=== PATIENT | female | born 1990 | race Caucasian/White ===

== ENCOUNTER 2017-06-23 16:22 | Inpatient (IN) | payer OTHER ==
[2017-06-23] VITALS (19 sets, daily range): BP systolic 109–151; BP diastolic 59–87
[~2017-06-23] VITALS: Ht 170.2 cm; Wt 69.4 kg
[~2017-06-23 16:22] MED LIST: B-COMPLEX-VITA1 EACH PO; CLARAVIS40 MG PO; IBUPROFEN800 MG PO; KEFLEX500 MG PO; LEVOTHYROXINE50 MCG PO; MICRONOR0.35 MG PO; Motrin PO; PRENATAL1 EACH PO; VITAMIN D-32000 UNI2 PO
[2017-06-23] MEDS ORDERED: VALTREX50 MG/ML PO (17:03)
[2017-06-23] MEDS ORDERED: WOMEN'S DAILY1 EAC4 PO (17:03)
[2017-06-23 17:40] LABS: BASOPHIL (%) 0.2 % (0-1); EOSINOPHIL (%) 0.1 % (0-5); HEMATOCRIT 36.8 % (36.0-46.0); HEMOGLOBIN 12.3 G/DL (11.9-15.5); IMMATURE GRANULOCYTE (%) 0.5 % (0.0-0.7); LYMPHOCYTE (%) 11.9 % (15-42); LYMPHOCYTE COUNT 1.8 K/uL (1.0-2.8); MCH 29.9 PG (29.0-34.0); MCHC 33.4 G/DL (30.0-36.0); MCV 89.3 FL (83-99); MONOCYTE (%) 4.2 % (3-12); MONOCYTE COUNT 0.6 K/uL (0-0.8); NEUTROPHIL (%) 83.1 % (45-76); NEUTROPHIL COUNT 12.4 K/uL (1.8-6.4); PLATELET COUNT 207 K/uL (156-360); RBC DIS.WIDTH-CV 13.2 % (11.8-14.6); RBC DIS.WIDTH-SD 43.3 % (39-53); RED BLOOD COUNT 4.12 M/uL (3.80-5.20); WHITE BLOOD COUNT 14.9 K/uL (4.1-10.2)
[2017-06-24 06:51] LABS: BASOPHIL (%) 0.3 % (0-1); BASOPHIL COUNT 0.1 K/uL (0-0.1); EOSINOPHIL (%) 0.4 % (0-5); EOSINOPHIL COUNT 0.1 K/uL (0-0.3); HEMATOCRIT 35.2 % (36.0-46.0); HEMOGLOBIN 11.6 G/DL (11.9-15.5); IMMATURE GRANULOCYTE (%) 0.4 % (0.0-0.7); LYMPHOCYTE (%) 14.8 % (15-42); LYMPHOCYTE COUNT 2.2 K/uL (1.0-2.8); MCH 29.8 PG (29.0-34.0); MCV 90.5 FL (83-99); MONOCYTE COUNT 0.9 K/uL (0-0.8); NEUTROPHIL (%) 78.1 % (45-76); NEUTROPHIL COUNT 11.7 K/uL (1.8-6.4); PLATELET COUNT 197 K/uL (156-360); RBC DIS.WIDTH-CV 13.2 % (11.8-14.6); RBC DIS.WIDTH-SD 43.2 % (39-53); RED BLOOD COUNT 3.89 M/uL (3.80-5.20)
[2017-06-24 07:55] VITALS: BP 106/62
[2017-06-24 14:56] VITALS: BP 118/78
[2017-06-24 23:02] VITALS: BP 122/78
[2017-06-25 07:44] VITALS: BP 120/69
[2017-06-25] MEDS ORDERED: IBUPROFEN800 MG PO (09:05)
[2017-06-25] MEDS ORDERED: CAMILA0.35 MG PO (09:06)
== END 2017-06-25 12:30 | disposition home or self-care (01) | DRG 774 ==
LOC: LDRP-OP → 2WEST 16:23 → LDRP-OP 07-21 13:35
PROVIDERS: Advanced Practice Midwife
PROC: 3E0R3BZ Introduction of Anesthetic Agent into Spinal Canal, Percutaneous Approach (ICD-10-PCS; principal; 2017-06-23)
PROC: 10E0XZZ Delivery of Products of Conception, External Approach (ICD-10-PCS; principal; 2017-06-23)
PROC: 00HU33Z Insertion of Infusion Device into Spinal Canal, Percutaneous Approach (ICD-10-PCS; principal; 2017-06-23)
PROC: 10907ZC Drainage of Amniotic Fluid, Therapeutic from Products of Conception, Via Natural or Artificial Opening (ICD-10-PCS; principal; 2017-06-23)
DX: O69.81X0 Labor and delivery complicated by cord around neck, without compression, not applicable or unspecified (principal); O99.284 Endocrine, nutritional and metabolic diseases complicating childbirth; E06.3 Autoimmune thyroiditis; O98.52 Other viral diseases complicating childbirth; B00.9 Herpesviral infection, unspecified; Z87.891 Personal history of nicotine dependence; Z3A.40 40 weeks gestation of pregnancy; Z37.0 Single live birth; Z80.8 Family history of malignant neoplasm of other organs or systems
CPT/HCPCS: 85025; C1755; J3010; J7120